=== PATIENT | male | born 1935 | race Caucasian/White ===

== ENCOUNTER 2016-09-19 22:52 | Emergency (ER) | payer MEDICARE ==
[2016-09-19 23:30] LABS: URINE BILIRUBIN NEGATIVE (NEGATIVE); URINE BLOOD TRACE (NEGATIVE); URINE GLUCOSE (UA) NEGATIVE (NEGATIVE); URINE LEUKOCYTE ESTERASE TRACE (NEGATIVE); URINE NITRITE NEGATIVE (NEGATIVE); URINE PROTEIN NEGATIVE (NEGATIVE); URINE UROBILINOGEN NORMAL (0-1 mg/dl)
[2016-09-19 23:34] LABS: URINE APPEARANCE CLEAR; URINE COLOR YELLOW
[2016-09-19 23:37] LABS: ABSOLUTE NEUTROPHIL COUNT 13.7 K/mm3 (1.8-7.7); BASO % 0.1 % (0.2-1.0); EOS # 0.1 (0.0-0.5); EOS % 0.5 % (0.9-2.9); HEMATOCRIT 45.9 % (32.0-52.0); HEMOGLOBIN 15.2 gm/l (14.0-18.0); IMM NEUT # 0.1 K/mm3 (0-0.2); IMM NEUT% 0.3 % (0-1); LYMPH # 0.5 (1.0-4.8); LYMPH % 3.1 % (15-45); MEAN CORPUSCULAR HEMOGLOBIN 29.8 pg (27.0-31.0); MEAN CORPUSCULAR HGB CONC 33.1 g/dl (33.0-37.0); MEAN PLATELET VOLUME 8.8 fl (7.4-10.4); MONO # 0.9 (0.0-0.8); PLATELET COUNT 240 K/mm3 (130-400); RED CELL DISTRIBUTION WIDTH 12.8 % (11.5-14.5)
[2016-09-19 23:45] LABS: URINE BACTERIA 1+; URINE EPITHELIAL CELLS FEW /hpf; URINE RBC 0 /hpf
[2016-09-19 23:47] LABS: ALB/GLOB RATIO 1.4 (>1.0); ALBUMIN 3.9 gm/dL (3.5-5.7); CALCIUM 9.1 mg/dL (8.6-10.3)
[2016-09-20 00:14] LABS: BAND 1 % (0-10); BASOPHIL 0 % (0-1); EOSINOPHIL 1 % (1-3); LYMPHOCYTE 7 % (15-45); MONOCYTE 6 % (4-12); NEUTROPHILS 85 % (43-75); PLATELET ESTIMATE NORMAL (NORMAL); TOTAL CELLS COUNTED 100
[2016-09-20] MEDS ORDERED: METOPROLOL TARTRATE 1 MG/ML 5ML VIAL ONE (00:49)
[2016-09-20] MEDS ORDERED: SODIUM CHLORIDE 0.9% 1,000 ML ONE (00:49)
[2016-09-20] MEDS ORDERED: ENOXAPARIN SODIUM 100 MG/ML SYRINGE SUB-Q ONE (01:53)
--- NOTE | 2016-09-20 07:49 | RAD ---
Exam: Two-view chest COMPARISON: 11/09/2015 at 01/01/2013 INDICATION: Cough and fever. FINDINGS: PA and lateral views of the chest were obtained. There is patchy increased opacity which projects over the posterior lower lobes on the lateral view. There is some volume loss within the left lower lobe along with some opacity along the left hemidiaphragm, suggesting it is located within the left lower lobe. Lung arnold are otherwise clear. Cardiac silhouette is within normal limits. Tubing descends down the right chest wall. IMPRESSION: Findings concerning for left lower lobe pneumonia.
--- NOTE | 2016-09-20 07:56 | CT ---
Exam: CT head without contrast COMPARISON: None INDICATION: Altered mental status and fever. TECHNIQUE: CT examination of the head was obtained without contrast. FINDINGS: There is a right parietal approach ventriculostomy catheter which terminates near the midline. The lateral ventricles are significantly dilated, although the temporal horns appear normal. There are no prior examinations for comparison therefore and significance is uncertain given the change cannot be ascertained. There is a focal area of encephalomalacia within the left frontal lobe and to a lesser extent the right frontal lobe. There are bilateral extra-axial fluid collections most prominent along the anterior frontal lobes bilaterally, measuring up to 5 mm in width on the right and 5 mm in width on the left. There is no midline shift. There is no evidence of acute intracranial hemorrhage. Periventricular white matter hypodensities are appreciated, slightly greater on the right, which may reflect chronic small vessel ischemic changes. There is some mucosal thickening within the ethmoid sinuses. The remainder the visualized paranasal sinuses and mastoid air cells are well aerated. Dense intracranial vascular calcifications are appreciated. IMPRESSION: 1. Ventriculomegaly despite presence of a ventricular catheter. This is of uncertain significance given lack of comparisons given the change cannot be ascertained. 2. 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 There is no evidence of acute intracranial hemorrhage. There is no midline shift. 3. Encephalomalacia is identified within the lateral frontal lobes, left greater than right. No definite CT evidence for acute ischemia. Preliminary report transmitted to the emergency department from [facility] at 0147 hours 09/20/2016.
== END 2016-09-20 02:51 | disposition short-term general hospital (02) ==
LOC: ED 22:52
DX: I21.4 Non-ST elevation (NSTEMI) myocardial infarction (principal); I10 Essential (primary) hypertension; G91.9 Hydrocephalus, unspecified; E78.5 Hyperlipidemia, unspecified; E78.00 Pure hypercholesterolemia, unspecified; Z86.73 Personal history of transient ischemic attack (TIA), and cerebral infarction without residual deficits
CPT/HCPCS: 83605; 83880; 85025; 87040; 87086; 80053; 84484; 81001; 71020; 70450; 99285 ×2; 96374; 36415; 93005; J1650; J7030